=== PATIENT | female | born 1980 | race Caucasian/White ===

== ENCOUNTER → 2017-11-22 | Day surgery (SDC) | payer BC, OTHER ==
--- NOTE | 2017-11-20 15:56 | HISTORY & PHYSICAL EXAMINATION ---
DATE OF ADMISSION: 11/22/2017 She is going for surgery on 11/22/[address] Miranda. REASON FOR ADMISSION: Missed . HISTORY OF PRESENT ILLNESS: The patient is a 37-year-old female, 3, para 2-0-1-2, who presents today after a followup ultrasound revealed early loss. The patient had an early miscarriage in 2011 without a D and E. She is requesting a D and E for this . The heart tones are negative following a repeat ultrasound today. She is AB positive and she is approximately 6 weeks. PAST MEDICAL HISTORY: Noncontributory. PAST SURGICAL HISTORY: x2 and tonsils. ALLERGIES: CODEINE. MEDICATIONS: vitamins. SOCIAL HISTORY: Denies smoking, alcohol, or drug use. FAMILY HISTORY: Noncontributory. REVIEW OF SYSTEMS: Negative. PHYSICAL EXAMINATION: HEENT: Within normal limits. LUNGS: Clear to auscultation. CARDIOVASCULAR: Regular rate and rhythm. ABDOMEN: Soft, nontender. VITAL SIGNS: Blood pressure 100/62, weight is 116 pounds. ASSESSMENT: Early failure, missed . PLAN: D and E in the OR at [facility].
[2017-11-21 11:58] VITALS: BMI 22.0
[~2017-11-22] VITALS: Ht 154.9 cm; Wt 52.7 kg
[~2017-11-22] MED LIST: DEXAMETHASONE SOD INJ 4 MG/ML VIAL ONE; FENTANYL CITRATE INJ 50 MCG/1 ML 2 ML VIAL ONE; IBUP-1427 PO; IBUPROFEN 600 MG TAB PO PRN; KETOROLAC TROMETHAMINE 30 MG/ML VIAL IV. PRN; LACTATED RINGER'S 1000ML 1,000 ML IV SCH; LIDOCAINE HCL 2% 2 ML VIAL (20MG/ML) ONE; MIDAZOLAM HCL 1 MG/ML 2ML VIAL ONE; ONDANSETRON INJ 2 MG/ML 2 ML VIAL IV PRN; ONDANSETRON INJ 2 MG/ML 2 ML VIAL ONE; OXYCODONE/ACETAMINOPHEN 5-325 TAB PO PRN; PRENTAB26 PO; PROPOFOL IV EMULSION 10 MG/ML 20 ML VIAL ONE; SODIUM CHLORIDE 0.9% 1000ML 1,000 ML IV SCH
[2017-11-22 09:47] VITALS: BP 124/85; PULSE 75; TEMP 36.7; O2SAT 100; Ht 154.9 cm; Wt 52.7 kg
--- NOTE | 2017-11-22 09:58 | History & Physical Bridge Note ---
H&P Re-Evaluation Bridge Note: I have examined the patient, reviewed the History & Physical and in the interval since the performance of the History & Physical I have noted the following changes of clinical significance: No changes noted
--- NOTE | 2017-11-22 12:10 | [facility] Post Operative Brief Note ---
Immediate Operative Summary Operative Date November 22, 2017. Pre-Operative Diagnosis First Trimester Missed Post-Operative Diagnosis Same as preop Procedure(s) Performed Dilation and Evacuation Surgeon Dr. Miranda Telephone Service Adviser Surgeon(s) None Estimated Blood Loss 20 ml Findings Consistent with Post-Op Diagnosis Fluids (cc crystalloids) 400 Specimens A. Products of conception Drains None Anesthesia Type General Complication(s) none Disposition Accompanied Pt To Recover: no Disposition: Recovery Room / PACU
--- NOTE | 2017-11-22 12:13 | Discharge Instructions ---
Discharge Instructions Date of Service November 22, 2017. Visit Reason for Visit: Missed Discharge Discharge Diagnosis / Problem: s/p D&E, missed Discharge Goals Goal(s): Decrease discomfort Activity Recommendations Activity Limitations: per Instructions/Follow-up section Anesthesia . Post Anesthesia Instructions: If you have had General Anesthesia or IV Sedation: * Do not drive today. * Resume driving when surgeon permits. * Do not make important decisions or sign legal documents today. * Call surgeon for: 1. Temperature elevations greater than 101 degrees F. 2. Uncontrollable pain. 3. Excessive bleeding. 4. Persistent nausea and vomiting. 5. Medication intolerance (nausea, vomiting or rash). * For nausea and vomiting use only clear liquids such as: tea, soda, bouillon until nausea subsides, then gradually increase diet as tolerated. * If you have any concerns or questions, call your surgeon's office. If physician is unavailable and it is an emergency, call 911 or go to the nearest emergency room. . Instructions / Follow-Up Instructions / Follow-Up ACTIVITY RECOMMENDATIONS: * Avoid tampons, douching, hot tubs, pools, and intercourse until bleeding has stopped. * May shower as usual. * No strenuous activity for 24-48 hours. After 24-48 hours, you may do anything you feel like doing (driving and sports are okay). SPECIAL CARE INSTRUCTIONS: Special Diet: * Mild nausea may occur in the immediate post-operative period. * Take clear liquids such as tea, cola or bouillon until all nausea has subsided; you may then resume your normal diet. Special Care: * Light bleeding and vaginal spotting can last from a few days to 3-4 weeks. Call your doctor if bleeding becomes heavier than the heaviest part of your period. * Check your temperature twice a day for one week. If it goes above 100.4 degrees Fahrenheit (38.0 Celsius), notify your doctor. * Call your doctor's office for an appointment for 6 weeks after your surgery. FOLLOW-UP VISIT: Call your doctor's office for an appointment for 6 weeks after your surgery. Diet Recommendations Recommended Home Diet: no limitations, resume previous diet Procedures Procedures Performed: Dilation and Evacuation Pending Studies Studies pending at discharge: no Medical Emergencies . Who to Call and When: Medical Emergencies: If at any time you feel your situation is an emergency, please call 911 immediately. . Non-Emergent Contact Non-Emergency issues call your: Primary Care Provider, Regional Economist . . "Provider Documentation" section prepared by Brown Miranda. .
[2017-11-22 13:00] VITALS: BP 98/50; PULSE 60; TEMP 36.8; O2SAT 100
--- NOTE | 2017-11-22 13:22 | OPERATIVE REPORT ---
DATE OF OPERATION: 11/22/2017 PREOPERATIVE DIAGNOSIS: First trimester missed . POSTOPERATIVE DIAGNOSIS: First trimester missed . OPERATIVE PROCEDURE: Suction, dilation and evacuation. SURGEON: Dr. Miranda. DONKEY ENGINE FIRER/FIREMAN: None. ANESTHESIA: General. ESTIMATED BLOOD LOSS: 20 mL IV FLUIDS: 400 mL crystalloid. URINE OUTPUT: 10 mL clear yellow urine. SPECIMENS: Products of conception to pathology. DRAINS: None. COMPLICATIONS: None. DISPOSITION: Recovery room. OPERATIVE FINDINGS: Upon bimanual examination, uterus was approximately 8 weeks' gestation. Bilateral adnexa were clear to palpation. Uterus sounded to 10 cm. Using a size 10 suction curette, a thorough evacuation was performed under suction obtaining a moderate amount of products of conception, which was all sent to pathology. Once the entire cavity was evacuated, utilizing a large Tsai curette a thorough sharp curettage of the cavity was performed obtaining minimal amount of tissue. Excellent hemostasis was noted. Patient tolerated the procedure well and was sent to recovery with stable vital signs. OPERATIVE PROCEDURE IN DETAIL: Patient was taken to the operating room where general anesthesia was administered. Once the anesthesia was found to be adequate, the patient was placed in dorsal lithotomy position and was prepped and draped in a manner appropriate for the procedure. A bimanual examination was then performed with the above-noted findings. Bladder was then drained of clear yellow urine. A weighted speculum was then placed into the vagina and the anterior lip of the cervix was grasped with a single tooth tenaculum. Using Little dilators, the cervix was dilated and the uterus sounded to 10 cm. Using a size 10 suction curette, a thorough curettage of the cavity was performed under suction evacuating the entire contents and sent to pathology. Multiple passes were performed. Once all products of conception was found to be evacuated, the suction curette was then removed and utilizing a large sharp curette a thorough curettage of the cavity was performed, obtaining a minimal amount of tissue. Excellent hemostasis was noted. All instruments were then removed from the vagina. All sponge and instruments were found to be correct x2. The patient tolerated the procedure well and was sent to recovery with stable vital signs. I attest to the content of the Intraoperative Record and any orders documented therein. Any exception s are noted below.
[2017-11-22 13:30] VITALS: BP 103/61; PULSE 62; O2SAT 99
--- NOTE | 2017-11-22 13:51 | Anesthesiology Progress Note ---
Anesthesia Post Op Note Date & Time November 22, 2017 at 13:50 Vital Signs Pain Intensity: 0 Vital Signs Past 12 Hours Date Time Temp Pulse Resp B/P (MAP) Pulse Ox O2 Delivery O2 Flow Rate FiO2 11/22/17 13:30 62 16 103/61 99 Room Air 11/22/17 13:00 36.8 60 16 98/50 100 Room Air 11/22/17 12:45 36.8 58 20 100/53 97 Room Air 11/22/17 12:35 62 20 119/58 97 Room Air 11/22/17 12:25 60 20 109/57 97 Room Air 11/22/17 12:18 36.6 80 20 114/69 96 Room Air 11/22/17 09:47 36.7 75 16 124/85 (98) 100 Room Air Notes Mental Status: alert / awake / arousable, participated in evaluation Pt Amnestic to Procedure: Yes Nausea / Vomiting: adequately controlled Pain: adequately controlled Airway Patency, RR, SpO2: stable & adequate BP & HR: stable & adequate Hydration State: stable & adequate Anesthetic Complications: no major complications apparent
== END | disposition home or self-care (01) ==
LOC: C.ACU 09:24
PROVIDERS: ATTEND Obstetrics & Gynecology
DX: O02.1 Missed abortion (principal); Z88.5 Allergy status to narcotic agent

== ENCOUNTER 2022-11-03 13:10 | Inpatient (IN) ==
[~2022-11-03 13:10] MED LIST changes: +CITRIC ACID/SODIUM CITRATE 15 ML UDC PO SCH; -DEXAMETHASONE SOD INJ 4 MG/ML VIAL ONE; -FENTANYL CITRATE INJ 50 MCG/1 ML 2 ML VIAL ONE; -IBUP-1427 PO; -IBUPROFEN 600 MG TAB PO PRN; -KETOROLAC TROMETHAMINE 30 MG/ML VIAL IV. PRN; -LACTATED RINGER'S 1000ML 1,000 ML IV SCH; -LIDOCAINE HCL 2% 2 ML VIAL (20MG/ML) ONE; -MIDAZOLAM HCL 1 MG/ML 2ML VIAL ONE; -ONDANSETRON INJ 2 MG/ML 2 ML VIAL IV PRN; -ONDANSETRON INJ 2 MG/ML 2 ML VIAL ONE; -OXYCODONE/ACETAMINOPHEN 5-325 TAB PO PRN; -PRENTAB26 PO; -PROPOFOL IV EMULSION 10 MG/ML 20 ML VIAL ONE; -SODIUM CHLORIDE 0.9% 1000ML 1,000 ML IV SCH; +ceFAZolin 2000MG 2,000 MG/15 ML SYR IV SCH
[2022-11-03 14:32] LABS: Basophils # (auto) 0.04 K/uL (0-0.2); Basophils % (auto) 0.4 %; Eosinophils % (auto) 0.9 %; Hematocrit (blood only) 39.7 % (37.0-47.0); Hemoglobin 13.7 g/dl (12.0-16.0); Immature Granulocytes # (auto) 0.14 K/uL (0.01-0.20); Immature Granulocytes % (auto) 1.3 %; Lymphocytes # (auto) 1.71 K/uL (1.2-3.4); Lymphocytes % (auto) 15.4 %; Mean Corpuscular Hemoglobin 29.5 pg (25.0-34.0); Mean Corpuscular Hgb Conc 34.5 g/dL (32.0-36.0); Mean Corpuscular Volume 85.6 fL (80.0-100.0); Mean Platelet Volume 10.6 fL (9.4-12.4); Monocytes # (auto) 0.62 K/uL (0.11-0.59); Monocytes % (auto) 5.6 %; Neutrophils % (auto) 76.4 %; Platelet Count 230 K/uL (130-400); RDW Coefficient of Variation 12.5 % (11.5-14.5); RDW Standard Deviation 38.5 fL (36.4-46.3); Red Blood Count 4.64 M/uL (4.20-5.40); White Blood Count 11.11 K/ul (4.8-10.8)
[2022-11-03 14:52] LABS: Albumin Level 3.4 gm/dl (3.4-5.0); Bilirubin,Total 0.2 mg/dl (0.2-1.0); Calcium 8.9 mg/dl (8.6-10.3); Potassium 4.1 mmol/L (3.5-5.1)
[2022-11-03 14:58] LABS: Albumin Globulin Ratio 1.1 (0.9-2); BUN Creatinine Ratio 23.2 (10-20); Creatinine Clr Calc Pharmacy 95.6 ml/min; Est GFR (African American) 125.3 ml/min; Est GFR (Non-African American) 108.1 ml/min; Globulin 3.1 gm/dl (2.5-4.0); Total Protein 6.5 gm/dl (6.0-8.3); Uric Acid 4.9 mg/dl (2.6-7.2)
[2022-11-03 15:09] LABS: INR 0.9 (0.9-1.1); Partial Thromboplastin Time 27.1 Seconds (21.0-31.0); Prothrombin Time 9.4 Seconds (9.0-12.0)
[2022-11-03 15:21] LABS: Total Protein Urine Random 114.2 mg/dl (0-11.9)
[2022-11-03 15:27] LABS: Creatinine Urine Random 50.5 mg/dl; Protein Creatinine Ratio Urine 2.3 (0-0.2)
[2022-11-03] MEDS ORDERED: LACTATED RINGER'S 1,000 ML IV SCH ×2 (15:45→18:30)
[2022-11-03] MEDS ORDERED: MAG SULFATE 4GM BOLUS FROM BAG IV ONE (15:58)
[2022-11-03] MEDS ORDERED: MAG SULFATE 6GM BOLUS FROM BAG IV ONE (15:58)
[2022-11-03] MEDS ORDERED: MAGNESIUM SULFATE 40GM / WTR 1,000 ML BAG IV ONE (16:02)
--- NOTE | 2022-11-03 16:09 | Anesthesiology Consultation ---
Date of Service November 03, 2022 Assessment & Plan Chart Review Chart Review: Acceptable Risk for Surgery Consults Requested none ASA ASA2 Proposed Anesthesia Anesthesia Type: Spinal Risk / Benefits Reviewed With: PT / POA / Parent / Guardian, Accepts Plan and Informed Consent Obtained History Height/Weight Height: 5 ft 1 in Weight: 69.4 kg Allergies Allergy/AdvReac Type Severity Reaction Status Date / Time acetaminophen [From Percocet] AdvReac Unknown Nausea Verified 10/27/22 13:52 codeine AdvReac Unknown NAUSEA Verified 10/27/22 13:52 oxycodone [From Percocet] AdvReac Unknown Nausea Verified 10/27/22 13:52 Medications Home Medications Medication Instructions Recorded Confirmed Last Taken valacyclovir 500 mg tablet 500 mg PO BID 10/27/22 10/27/22 Unknown (Valtrex) NPO Date Last Intake of Fluids: 11/03/22 Time Last Intake of Fluids: 10:45 Date Last Intake of Solids: 11/03/22 Time Last Intake of Solids: 10:45 Past Medical History Medical History Pre-eclampsia Exercise / Class Metabolic Activity II 4-5 Yardwork/Stairs/Walk up hill Past Family History Family History Grandmother (Paternal) Family history of diabetes mellitus Past Surgical History Surgical History History of section x 2 History of dilatation and curettage History of tonsillectomy Hx of breast augmentation Past Anesthesia History No Hx of Anesthesia Complications and No Family Hx of Anesthesia Complications History of PONV No Hx of PONV and No Hx of Motion Sickness Social History Smoking Status: Former smoker tobacco type: cigarettes Smoking cigarettes per day: quit 12 yrs ago Hx Alcohol Use: No Alcohol type: wine alcohol intake frequency: a few times a week Hx Substance Use: No substance use type: does not use Physical Exam Vital Signs Last Vital Signs Temp 36.8 C 11/03/22 13:34 Pulse 70 11/03/22 15:18 Resp 20 11/03/22 13:34 BP 142/90 H 11/03/22 15:18 ENMT Mouth: no TMJ abnormality Thyromental Distance: > or= 3.5 Finger Breadths Mallampati Class: II Neck normal visual inspection and trachea midline; neck extension not limited Respiratory normal respiratory effort Auscultation: lungs clear to auscultation bilaterally Cardiovascular Rate/Rhythm: regular rate and regular rhythm Heart Sounds: no murmur Musculoskeletal Spine: normal cervical ROM Extremities: full ROM of extremities Neurologic moves all extremities Psychiatric Orientation: alert and oriented x 3 Testing Laboratory Results 11/03/22 14:14 11/03/22 14:14 PT 9.4 Seconds (9.0-12.0) 11/03/22 14:14 INR 0.9 (0.9-1.1) 11/03/22 14:14 APTT 27.1 Seconds (21.0-31.0) 11/03/22 14:14
--- NOTE | 2022-11-03 16:11 | History & Physical Report ---
Date of Service November 03, 2022 Assessment & Plan (1) Pre-eclampsia, severe, antepartum: Plan: Start Magnesium repet with bilateral salpingectomy planned Admission and Anticipated Discharge Date Admission Date: November 03, 2022 History of Present Illness Chief Complaint: high blood pressure in 36.2 weeks Primary Care Provider: DIOGENES PCP 42 F P2012 at 36.2 weeks admitted from office with elevated BP of 164/100 and 162/100. She has been treending upward. Her labs were normal in the past and today had urine protein/creatinine ratio elevated at 2.3. She denies headache, visual changes any swelling or any other symptoms of nausea or vomitting. Allergies Allergy/AdvReac Type Severity Reaction Status Date / Time acetaminophen [From Percocet] AdvReac Unknown Nausea Verified 10/27/22 13:52 codeine AdvReac Unknown NAUSEA Verified 10/27/22 13:52 oxycodone [From Percocet] AdvReac Unknown Nausea Verified 10/27/22 13:52 Home Medications Medication Instructions Recorded Confirmed Type valacyclovir 500 mg tablet 500 mg PO BID 10/27/22 10/27/22 History (Valtrex) Patient History Medical History Pre-eclampsia Surgical History History of section x 2 History of dilatation and curettage History of tonsillectomy Hx of breast augmentation Family History Grandmother (Paternal) Family history of diabetes mellitus Social History Smoking Status: Former smoker Cigarettes Per Day: quit 12 yrs ago; Second Hand Exposure: No; Hx Alcohol Use: No Hx Substance Use: No Preferred Language: Cambodian Communication Ability: Effective Compensation Vice President Required: No Beliefs That Will Affect Care: None marital status: Current Living Situation: Family Feels Safe at Home: Yes Sunscreen Use: Yes Assistive Devices: None OB History x2 PRINCIPAL DATABASE DEVELOPER History Herpes Review of Systems All systems reviewed & are unremarkable except as noted in HPI & below Physical Exam Constitutional: WD/WN, vitals as above Eyes: PERRL, conjunctivae normal, anicteric sclerae Respiratory: normal respiratory effort, lungs clear to auscultation Cardiovascular: RRR, no murmur, no edema Gastrointestinal (Abdomen): Inspection/Auscultation: abdomen normal to inspection Musculoskeletal: Extremities: extremities normal to inspection Skin: no rashes, warm and dry Neurologic: patellar DTR's 2+ bilat, sensation intact Psychiatric: A+Ox3, euthymic affect Genitourinary: no vaginal lesions, no adnexal mass OB Exam Monitor Tracing: + external FHT monitor used, + external uterine monitor used, + category I and + normal FHT variability Results & Data Vital Signs (Past 12 Hours) Vital Signs Temp Pulse Resp BP 11/03/22 13:34 36.8 C 20 11/03/22 15:18 70 11/03/22 15:18 142/90 H 11/03/22 14:06 71 11/03/22 14:06 129/87 11/03/22 13:58 77 11/03/22 13:58 132/83 11/03/22 13:47 75 11/03/22 13:47 140/99 11/03/22 13:37 87 11/03/22 13:37 139/92 11/03/22 13:26 78 149/95 H Laboratory Results 11/03/22 11/03/22 11/03/22 14:14 14:14 14:14 WBC 11.11 H RBC 4.64 Hgb 13.7 Hct 39.7 MCV 85.6 MCH 29.5 MCHC 34.5 RDW Std Deviation 38.5 RDW Coeff of Cathy 12.5 Plt Count 230 MPV 10.6 Immature Gran % (Auto) 1.3 Neut % (Auto) 76.4 Lymph % (Auto) 15.4 Vance % (Auto) 5.6 Eos % (Auto) 0.9 Baso % (Auto) 0.4 Neut # (Auto) 8.50 H Lymph # (Auto) 1.71 Vance # (Auto) 0.62 H Eos # (Auto) 0.10 Baso # (Auto) 0.04 Immature Gran # (Auto) 0.14 PT 9.4 INR 0.9 APTT 27.1 PTT Ratio 1.0 Sodium 135 L Potassium 4.1 Chloride 106 Carbon Dioxide 21 Anion Gap 8 BUN 16 Creatinine 0.69 Est Cr Clr Drug Dosing 95.6 Est GFR ( Amer) 125.3 Est GFR (Non-Af Amer) 108.1 BUN/Creatinine Ratio 23.2 H Glucose 74 Uric Acid 4.9 Calcium 8.9 Total Bilirubin 0.2 AST 19 ALT 14 Alkaline Phosphatase 100 Total Protein 6.5 Albumin 3.4 Globulin 3.1 Albumin/Globulin Ratio 1.1 Ur Random Creatinine U Random Total Protein Protein/Creatinin Ratio SARS-CoV-2, RNA, NAAT 11/03/22 11/03/22 Unknown Unknown WBC RBC Hgb Hct MCV MCH MCHC RDW Std Deviation RDW Coeff of Cathy Plt Count MPV Immature Gran % (Auto) Neut % (Auto) Lymph % (Auto) Vance % (Auto) Eos % (Auto) Baso % (Auto) Neut # (Auto) Lymph # (Auto) Vance # (Auto) Eos # (Auto) Baso # (Auto) Immature Gran # (Auto) PT INR APTT PTT Ratio Sodium Potassium Chloride Carbon Dioxide Anion Gap BUN Creatinine Est Cr Clr Drug Dosing Est GFR ( Amer) Est GFR (Non-Af Amer) BUN/Creatinine Ratio Glucose Uric Acid Calcium Total Bilirubin AST ALT Alkaline Phosphatase Total Protein Albumin Globulin Albumin/Globulin Ratio Ur Random Creatinine 50.5 U Random Total Protein 114.2 H Protein/Creatinin Ratio 2.3 H SARS-CoV-2, RNA, NAAT NEGATIVE Code Status & VTE Plan VTE Prophylaxis Plan VTE Prophylaxis will be ordered: No Monitoring External Monitor Cat 1
[2022-11-03] MEDS ORDERED: fentaNYL citrate PF 100 MCG/2 ML VIAL ONE (16:43)
[2022-11-03] MEDS ORDERED: OXYTOCIN 10 UNITS/ML 10ML VIAL ONE ×4 (16:43→16:44)
[2022-11-03] MEDS ORDERED: MoRPHine SULFATE PF 1 MG/ML 10 ML AMP/VIAL ONE (16:43)
[2022-11-03] MEDS ORDERED: ePHEDrine sulfate 50 MG/ML AMP IV PRN (16:52)
[2022-11-03] MEDS ORDERED: ONDANSETRON INJ 2 MG/ML 2 ML VIAL IV PRN ×2 (16:52→18:26)
[2022-11-03] MEDS ORDERED: NALOXONE HCL 0.08 MG in SYRINGE 1.8 ML IV PRN (16:52)
[2022-11-03] MEDS ORDERED: MEPERIDINE HCL 25 MG/ML CARP/VIAL IV PRN (16:52)
[2022-11-03] MEDS ORDERED: MoRPHine SULFATE 2 MG/ML CARP IV PRN (16:52)
[2022-11-03] MEDS ORDERED: NALOXONE HCL 0.4 MG/1 ML VIAL/CARP IV PRN (16:52)
[2022-11-03] MEDS ORDERED: diphenhydrAMINE 50 MG/ML VIAL IV PRN ×2 (16:52→18:26)
[2022-11-03] MEDS ORDERED: NALBUPHINE HCL INJ 10 MG/ML AMP IV PRN (16:52)
[2022-11-03] MEDS ORDERED: METOCLOPRAMIDE HCL 20 MG in SODIUM CHLORIDE 0.9% 50 ML IV PRN (16:52)
[2022-11-03] MEDS ORDERED: NALOXONE HCL 1 MG in SODIUM CHLORIDE 0.9% 1000ML 1,000 ML IV PRN (16:52)
[2022-11-03] MEDS ORDERED: LACTATED RINGER'S 500 ML IV PRN (16:52)
[2022-11-03] MEDS ORDERED: LABETALOL HCL IV 5 MG/ML 20ML IV ONE (16:59)
[2022-11-03] MEDS ORDERED: NO NARCOTICS OR SEDATIVES SCH (17:00)
[2022-11-03] MEDS ORDERED: DC INTRASPINAL MORPHINE SCH (17:00)
[2022-11-03] MEDS ORDERED: SODIUM CHLORIDE 0.9% 1000ML 1,000 ML IV SCH (17:00)
[2022-11-03] MEDS ORDERED: MoRPHine SULFATE PF 1 MG/ML 10 ML AMP/VIAL INT SPINAL ONE (17:10)
[2022-11-03] MEDS ORDERED: PHENYLEPHRINE 100MCG/ML 5ML SYR ONE (17:32)
[2022-11-03] MEDS ORDERED: ONDANSETRON INJ 2 MG/ML 2 ML VIAL ONE (17:32)
[2022-11-03] MEDS ORDERED: METOCLOPRAMIDE HCL INJ 5 MG/ML 2 ML VIAL ONE (17:32)
--- NOTE | 2022-11-03 18:23 | Anesthesiology Progress Note ---
Date of Service November 03, 2022 Anesthesia Post Procedure Vital Signs Vital Signs: Temp Pulse Resp BP 11/03/22 13:34 36.8 C 20 11/03/22 16:54 112 H 11/03/22 16:54 193/101 H 11/03/22 16:23 75 11/03/22 16:23 194/101 H 11/03/22 15:18 70 11/03/22 15:18 142/90 H 11/03/22 14:06 71 11/03/22 14:06 129/87 11/03/22 13:58 77 11/03/22 13:58 132/83 11/03/22 13:47 75 11/03/22 13:47 140/99 11/03/22 13:37 87 11/03/22 13:37 139/92 11/03/22 13:26 78 149/95 H Notes Mental Status: alert / awake / arousable Patient Amnestic to Procedure: Yes Nausea / Vomiting: adequately controlled Pain: adequately controlled Airway Patency, RR, SpO2: stable & adequate BP & HR: stable & adequate Hydration State: stable & adequate Neuraxial Anesthesia: was administered and sensory block is resolving Anesthetic Complications: no major complications apparent
--- NOTE | 2022-11-03 18:23 | Post Operative Brief Note ---
Immediate Post Op Note v1 Date of Surgery November 03, 2022 Pre & Post Diagnosis Operation Date: 11/03/22 16:30 Pre-Op Diagnosis: Repeat section with bilateral tubal ligation Preeclampsia with severe features Post-Op Diagnosis: Same as pre-op I identified the patient and participated in the time-out.: Yes Procedure Operation Date: 11/03/22 16:30 Actual Procedures p Repeat Section in LD; Live male child at 1734(Bilateral) - Jono Lloyd MD Surgeon Jono Lloyd MD Knifer Up Brit MARTINEZ Estimated Blood Loss 450 Findings Consistent with Post-Op Diagnosis Live male Apgars 8/9 weight 5 lbs. 5oz. Fluids LR 1100 ml. Specimens placenta bilateral fallopian tubes Drains Ross Catheter (Inserted after spinal anesthesia; draining clear yellow urine during procedure.) Anesthesia Type Spinal Complications none Disposition Accompanied Patient To Recovery: Yes Overlapping Procedure I was present for: the critical portions of procedure. I was immediately available: during the entire case. Back up surgeon: was not required during procedure.
[2022-11-03] MEDS ORDERED: DIPHTHERIA/TETANUS/PERTUSSIS 0.5mL SYR/VIAL (Age 7+yrs) IM ONE (18:26)
[2022-11-03] MEDS ORDERED: PROMETHAZINE HCL 25 MG in SODIUM CHLORIDE 0.9% 50 ML IV PRN (18:26)
[2022-11-03] MEDS ORDERED: diphenhydrAMINE Capsule 25 MG CAP PO PRN (18:26)
[2022-11-03] MEDS ORDERED: MEPERIDINE HCL 50 MG/ML CARP IV PRN (18:26)
[2022-11-03] MEDS ORDERED: SENNA 8.6 MG TAB PO PRN (18:26)
[2022-11-03] MEDS ORDERED: BENZOCAINE 20% AER SPR 82.5 GM CAN EXT PRN (18:26)
[2022-11-03] MEDS ORDERED: MAGNESIUM HYDROXIDE SUSP 30 ML UDC PO PRN (18:26)
[2022-11-03] MEDS ORDERED: oxyCODONE/ACETAMINOPHEN 5mg/325mg TAB PO PRN (18:26)
[2022-11-03] MEDS ORDERED: HYDROCORTISONE ACETATE 25 MG SUPP PR PRN (18:26)
[2022-11-03] MEDS: MAGNESIUM SULFATE / WTR 40 GM/1,000 ML BAG IV SCH (19:30)
[2022-11-03] MEDS: KETOROLAC 30 MG/ML VIAL IV PRN (21:06)
[2022-11-03] MEDS: SIMETHICONE 80 MG CHEW PO SCH (21:06)
[2022-11-03] MEDS: DOCUSATE SODIUM 100 MG CAP PO SCH (21:06)
[2022-11-03] MEDS: OXYTOCIN 20 UNITS in LACTATED RINGER'S 1,000 ML IV SCH (21:12)
--- NOTE | 2022-11-03 22:09 | Operative Report (OR) ---
DATE OF SURGERY: 11/03/2022 PREOPERATIVE DIAGNOSES: Preeclampsia with severe features, voluntary sterilization procedure. POSTOPERATIVE DIAGNOSES: Preeclampsia with severe features, voluntary sterilization procedure. PROCEDURE: Repeat section, low segment transverse and bilateral salpingectomy. SURGEON: Jono Lloyd MD DRIER BELT CONVEYOR: MICHELLE Perea ANESTHESIA: Spinal. CLINICAL HISTORY: The patient is a 42-year-old female, para 2-0-1-2, at 36 weeks and 2 days, admitte d from the office with elevated blood pressures consistent with preeclampsia with severe features. S he also had elevated urine protein creatinine ratio. The patient desired elective sterilization, and she was consented for bilateral salpingectomy and given informed consent. The patient was identified prior to the start of the procedure and Ancef 2 g were given preop. DESCRIPTION OF PROCEDURE: Under satisfactory spinal anesthesia, the patient was prepped and draped i n the usual sterile fashion. She was tested for adequate anesthesia. A low Pfannenstiel incision th rough a prior scar, entering into the abdominal cavity in successive layers. Upon entering into the peritoneal cavity, a bladder flap was made. A low segment transverse incision over the lower uterine segment was made. The incision was widened in the AP diameter. The amniotic sac was nicked, found to be clear. The infant was then delivered from the vertex presentation with the aid of fundal press ure, delivering a live male. Cord was doubly clamped and cut after a 1-minute cord delay. Apgars we re 8 and 9, weight 5 pounds 5 ounces. Cord blood was obtained. Placenta delivered spontaneous ly and intact and submitted to pathology as a separate specimen. The uterus was then exteriorized. Ring forceps were then used to grab both angles in the inferior margin. Another ring used to dilate the cervix. Uterus was closed in a single layer closure using 3-0 Vicryl suture in continuous interl ocking fashion. Both tubes and ovaries were inspected and were found to be within normal limits. Portillo th tubes were grabbed posteriorly with Oneyda clamps, and using the handheld LigaSure device, the tu bes were removed in normal fashion using surgical energy. No active bleeding was noted. The content s of the pelvic cavity were dry and irrigated. The initial sponge, needle, and instrument counts wer e found to be correct. The tubes were once more inspected, no active bleeding was noted. The fascia was then reapproximated from both ends using 0 Vicryl suture in continuous fashion. Subcuticular sp montserrat was then irrigated and closed with 3-0 plain suture. Skin was reapproximated with 4-0 Monocryl s uture. Steri-Strips were then applied. Clear urine was noted from the Ross. The estimated blood l oss was approximately 450 mL. The total urine output was 300 mL and the total fluids were 1100 mL. Th e patient was then placed supine on a stretcher. She was taken to recovery room in stable condition. Job ID: [id number]
[2022-11-04 06:00] LABS: Basophils # (auto) 0.06 K/uL (0-0.2); Basophils % (auto) 0.5 %; Eosinophils # (auto) 0.05 K/uL (0-0.50); Eosinophils % (auto) 0.4 %; Hematocrit (blood only) 36.4 % (37.0-47.0); Hemoglobin 12.5 g/dl (12.0-16.0); Immature Granulocytes % (auto) 1.6 %; Lymphocytes # (auto) 1.27 K/uL (1.2-3.4); Lymphocytes % (auto) 9.9 %; Mean Corpuscular Hemoglobin 29.2 pg (25.0-34.0); Mean Corpuscular Hgb Conc 34.3 g/dL (32.0-36.0); Mean Platelet Volume 10.1 fL (9.4-12.4); Monocytes # (auto) 0.78 K/uL (0.11-0.59); Monocytes % (auto) 6.1 %; Neutrophils # (auto) 10.46 K/uL (1.40-6.50); Neutrophils % (auto) 81.5 %; Platelet Count 185 K/uL (130-400); RDW Coefficient of Variation 12.4 % (11.5-14.5); RDW Standard Deviation 37.8 fL (36.4-46.3); Red Blood Count 4.28 M/uL (4.20-5.40); White Blood Count 12.82 K/ul (4.8-10.8)
[2022-11-04] MEDS: KETOROLAC 30 MG/ML VIAL IV PRN (06:27)
[2022-11-04] MEDS ORDERED: Nursing to Pharmacy Communication PRN (08:37)
[2022-11-04] MEDS ORDERED: SODIUM CHLORIDE 0.65% NA SOLN 45 ML (OCEAN) NAE PRN (08:44)
[2022-11-04] MEDS: OXYTOCIN 20 UNITS in LACTATED RINGER'S 1,000 ML IV SCH (10:30)
[2022-11-04] MEDS ORDERED: KETOROLAC 30 MG/ML VIAL IV PRN (10:52)
[2022-11-04] MEDS: MAGNESIUM SULFATE / WTR 40 GM/1,000 ML BAG IV SCH (11:03)
[2022-11-04 11:11] LABS: Calcium 6.5 mg/dl (8.6-10.3)
[2022-11-04 11:12] LABS: Albumin Globulin Ratio 1.1 (0.9-2); Albumin Level 2.9 gm/dl (3.4-5.0); BUN Creatinine Ratio 15.8 (10-20); Bilirubin,Total 0.2 mg/dl (0.2-1.0); Creatinine Clr Calc Pharmacy 86.8 ml/min; Est GFR (African American) 112.9 ml/min; Est GFR (Non-African American) 97.4 ml/min; Globulin 2.7 gm/dl (2.5-4.0); Potassium 3.8 mmol/L (3.5-5.1); Total Protein 5.6 gm/dl (6.0-8.3)
--- NOTE | 2022-11-04 11:40 | Obstetrical Progress Note ---
Date of Service November 04, 2022 Assessment & Plan (1) Pre-eclampsia, severe, antepartum: POD #1 for Preeclampsia pt doing well On Magnesium sulphate Stable vital and labs Plan D/C Mg after 24 hrs continue to monitor Vitals and labs (2) delivery delivered: Subjective Ambulation: ambulating normally Voiding: no voiding problems Passing Gas:: Yes Diet Tolerance:: clear liquids Lochia:: Small Feeding Type:: breast feeding Review of Systems All systems reviewed & are unremarkable except as noted in HPI & below Physical Exam Constitutional WD/WN, vitals as above well developed and well nourished Eyes PERRL, conjunctivae normal, anicteric sclerae ENMT external ear and nose normal, oropharynx normal Neck trachea midline, no thyromegaly Respiratory normal respiratory effort, lungs clear to auscultation Cardiovascular RRR, no murmur, no edema Chest (Breasts) normal inspection/palpation of breasts Gastrointestinal (Abdomen) normal bowel sounds, soft, nontender, no hepatosplenomegaly Musculoskeletal no cyanosis or clubbing, extremities motor strength 5/5 Skin no rashes, warm and dry + incision (Clean,dry and intact) Neurologic patellar DTR's 2+ bilat, sensation intact Psychiatric A+Ox3, euthymic affect Genitourinary normal external appearance Lymphatic no cervical or axillary lymphadenopathy Results & Data Vital Signs (Past 12 Hours) Vital Signs Temp Pulse Resp BP Pulse Ox O2 Del Method 11/04/22 11:00 20 11/04/22 11:00 36.5 C 20 11/04/22 09:55 16 11/04/22 09:03 20 11/04/22 08:09 20 11/04/22 07:00 18 11/04/22 07:00 Room Air 11/04/22 06:05 14 11/04/22 06:05 14 98 11/04/22 05:05 16 98 11/04/22 05:05 16 11/04/22 04:05 18 100 11/04/22 03:05 Room Air 11/04/22 03:05 36.8 C 16 11/04/22 03:05 16 98 11/04/22 03:05 16 11/04/22 02:05 16 97 11/04/22 02:05 16 11/04/22 01:10 14 11/04/22 01:10 14 95 11/04/22 00:05 18 95 11/04/22 00:05 18 11/04/22 11:32 77 94 11/04/22 11:27 77 95 11/04/22 11:22 74 95 11/04/22 11:17 74 97 11/04/22 11:12 71 97 11/04/22 11:07 71 97 11/04/22 11:02 73 98 11/04/22 10:57 77 99 11/04/22 10:52 71 98 11/04/22 10:47 67 99 11/04/22 10:42 65 98 11/04/22 10:37 80 96 11/04/22 10:32 64 99 11/04/22 10:30 63 133/83 11/04/22 10:27 63 99 11/04/22 10:22 63 98 11/04/22 10:17 66 99 11/04/22 10:12 63 99 11/04/22 10:07 63 100 11/04/22 10:02 66 99 11/04/22 09:57 62 99 11/04/22 09:52 73 97 11/04/22 09:47 60 97 11/04/22 09:42 60 98 11/04/22 09:37 62 99 11/04/22 09:32 59 L 97 11/04/22 09:27 58 L 97 11/04/22 09:22 61 97 11/04/22 09:17 60 98 11/04/22 09:12 61 98 11/04/22 09:07 62 96 11/04/22 09:02 63 98 11/04/22 08:57 62 99 11/04/22 08:52 68 98 11/04/22 08:47 73 98 11/04/22 08:42 65 98 11/04/22 08:37 72 98 11/04/22 08:32 78 98 11/04/22 08:27 74 99 11/04/22 08:22 66 97 11/04/22 08:17 68 96 11/04/22 08:12 83 98 11/04/22 08:07 80 98 11/04/22 08:06 77 143/90 H 11/04/22 08:02 77 99 11/04/22 07:57 72 99 11/04/22 07:52 68 99 11/04/22 07:47 65 99 11/04/22 07:42 69 98 11/04/22 07:37 64 100 11/04/22 07:32 68 99 11/04/22 07:27 67 97 11/04/22 07:22 66 97 11/04/22 07:17 65 98 11/04/22 07:12 65 97 11/04/22 07:07 69 98 11/04/22 07:02 66 98 11/04/22 06:57 69 96 11/04/22 06:52 67 97 11/04/22 06:47 69 98 11/04/22 06:42 65 98 11/04/22 06:37 67 96 11/04/22 06:32 68 98 11/04/22 06:27 66 98 11/04/22 06:22 80 99 11/04/22 06:17 75 98 11/04/22 06:12 75 100 11/04/22 06:07 99 11/04/22 06:07 71 11/04/22 06:07 69 114/77 11/04/22 06:02 66 98 11/04/22 05:57 65 99 11/04/22 05:52 66 99 11/04/22 05:47 66 98 11/04/22 05:42 62 99 11/04/22 05:37 67 99 11/04/22 05:32 62 98 11/04/22 05:27 65 98 11/04/22 05:22 62 99 11/04/22 05:17 63 96 11/04/22 05:15 61 121/68 11/04/22 05:12 61 97 11/04/22 05:07 63 98 11/04/22 05:02 61 97 11/04/22 04:57 61 99 11/04/22 04:52 62 98 11/04/22 04:47 62 97 11/04/22 04:42 64 98 11/04/22 04:41 75 88 L 11/04/22 04:37 67 97 11/04/22 04:32 68 97 11/04/22 04:27 65 98 11/04/22 04:22 67 99 11/04/22 04:17 75 99 11/04/22 04:12 66 100 11/04/22 04:07 74 149/83 H 99 11/04/22 04:02 76 99 11/04/22 03:57 71 98 11/04/22 03:52 67 98 11/04/22 03:47 63 100 11/04/22 03:42 69 100 11/04/22 03:37 78 100 11/04/22 03:32 61 99 11/04/22 03:27 61 99 11/04/22 03:22 60 100 11/04/22 03:17 58 L 98 11/04/22 03:12 58 L 99 11/04/22 03:07 60 98 11/04/22 03:02 58 L 98 11/04/22 02:57 59 L 97 11/04/22 02:52 57 L 97 11/04/22 02:47 60 96 11/04/22 02:42 56 L 95 11/04/22 02:37 60 97 11/04/22 02:32 58 L 96 11/04/22 02:27 66 97 11/04/22 02:22 59 L 97 11/04/22 02:17 57 L 96 11/04/22 02:12 63 97 11/04/22 02:07 58 L 96 11/04/22 02:06 59 L 124/75 11/04/22 02:02 65 96 11/04/22 01:57 58 L 97 11/04/22 01:52 60 96 11/04/22 01:47 60 96 11/04/22 01:42 63 95 11/04/22 01:37 59 L 96 11/04/22 01:32 58 L 97 11/04/22 01:27 61 96 11/04/22 01:22 68 95 11/04/22 01:17 76 100 11/04/22 01:12 57 L 95 11/04/22 01:07 58 L 95 11/04/22 01:02 57 L 95 11/04/22 00:57 57 L 95 11/04/22 00:52 58 L 95 11/04/22 00:47 61 95 11/04/22 00:42 61 94 11/04/22 00:37 60 95 11/04/22 00:32 57 L 94 11/04/22 00:27 71 97 11/04/22 00:22 60 95 11/04/22 00:17 62 96 11/04/22 00:12 60 96 11/04/22 00:07 95 11/04/22 00:07 61 11/04/22 00:07 64 146/63 H 11/04/22 00:02 59 L 95 11/03/22 23:57 95 11/03/22 23:57 60 11/03/22 23:52 95 11/03/22 23:52 60 11/03/22 23:47 95 11/03/22 23:47 64 11/03/22 23:42 97 11/03/22 23:42 61
[2022-11-04] MEDS: IBUPROFEN 600 MG TAB PO PRN (13:32)
[2022-11-04] MEDS: SIMETHICONE 80 MG CHEW PO SCH ×4 (13:33→19:46)
[2022-11-04] MEDS: ACETAMINOPHEN 500 MG TAB PO PRN ×2 (14:49→22:26)
[2022-11-04] MEDS: DOCUSATE SODIUM 100 MG CAP PO SCH (19:46)
[2022-11-04] MEDS ORDERED: bisacodyL 5 MG TABEC PO SCH (20:00)
--- NOTE | 2022-11-04 20:34 | Progress Note ---
Date of Service November 04, 2022 Assessment & Plan (1) Pre-eclampsia, severe, antepartum: Plan: Pt feeling much better Able to void and ambulate BP: 140/89 Will continue to monitor Admission and Anticipated Discharge Date Admission Date: November 03, 2022 Results & Data Vital Signs (Past 12 Hours) Vital Signs Temp Pulse Pulse Resp BP BP Pulse Ox 11/04/22 18:05 11/04/22 18:05 36.9 C 65 17 147/89 H 11/04/22 15:30 36.7 C 20 11/04/22 13:20 18 11/04/22 12:10 20 11/04/22 11:00 20 11/04/22 11:00 36.5 C 20 11/04/22 09:55 16 11/04/22 09:03 20 11/04/22 17:12 72 98 11/04/22 17:07 71 99 11/04/22 17:02 70 98 11/04/22 17:00 70 144/94 H 11/04/22 16:57 67 98 11/04/22 16:52 67 97 11/04/22 16:47 67 97 11/04/22 16:42 69 98 11/04/22 16:37 65 98 11/04/22 16:36 66 158/76 H 11/04/22 16:34 63 181/85 H 11/04/22 16:32 70 98 11/04/22 16:27 66 100 11/04/22 16:22 67 100 11/04/22 16:19 62 155/71 H 11/04/22 16:17 64 99 11/04/22 16:12 63 100 11/04/22 16:07 70 100 11/04/22 16:04 62 175/95 H 11/04/22 16:02 69 100 11/04/22 15:57 74 100 11/04/22 15:52 58 L 99 11/04/22 15:48 59 L 143/86 H 11/04/22 15:47 58 L 100 11/04/22 15:42 61 99 11/04/22 15:37 64 99 11/04/22 15:34 59 L 151/86 H 11/04/22 15:32 62 99 11/04/22 15:27 71 99 11/04/22 15:22 69 99 11/04/22 15:18 65 156/92 H 11/04/22 15:17 61 97 11/04/22 15:12 61 99 11/04/22 15:07 61 99 11/04/22 15:02 62 97 11/04/22 15:03 63 154/88 H 11/04/22 14:57 62 97 11/04/22 14:52 64 96 11/04/22 14:49 63 159/87 H 11/04/22 14:47 68 95 11/04/22 14:42 68 96 11/04/22 14:37 69 96 11/04/22 14:32 70 166/93 H 95 11/04/22 14:27 74 95 11/04/22 14:22 68 95 11/04/22 14:17 71 95 11/04/22 14:12 68 95 11/04/22 14:07 96 11/04/22 14:07 67 11/04/22 14:07 71 151/86 H 11/04/22 14:02 66 95 11/04/22 13:57 66 95 11/04/22 13:52 69 95 11/04/22 13:47 64 95 11/04/22 13:42 64 95 11/04/22 13:37 69 95 11/04/22 13:32 66 96 11/04/22 13:28 64 147/85 H 11/04/22 13:27 68 96 11/04/22 13:22 70 96 11/04/22 13:17 65 95 11/04/22 13:12 65 96 11/04/22 13:07 64 96 11/04/22 13:02 64 96 11/04/22 12:57 65 96 11/04/22 12:52 64 95 11/04/22 12:47 64 96 11/04/22 12:42 66 95 11/04/22 12:37 72 96 11/04/22 12:32 78 97 11/04/22 12:27 77 95 11/04/22 12:22 75 96 11/04/22 12:17 75 95 11/04/22 12:12 63 95 11/04/22 12:07 95 11/04/22 12:07 64 11/04/22 12:07 65 147/81 H 11/04/22 12:02 66 95 11/04/22 11:57 70 96 0421/23 11:52 69 95 11/04/22 11:47 74 95 11/04/22 11:42 76 96 11/04/22 11:37 68 95 11/04/22 11:32 77 94 11/04/22 11:27 77 95 11/04/22 11:22 74 95 11/04/22 11:17 74 97 11/04/22 11:12 71 97 11/04/22 11:07 71 97 11/04/22 11:02 73 98 11/04/22 10:57 77 99 11/04/22 10:52 71 98 11/04/22 10:47 67 99 11/04/22 10:42 65 98 11/04/22 10:37 80 96 11/04/22 10:32 64 99 11/04/22 10:30 63 133/83 11/04/22 10:27 63 99 11/04/22 10:22 63 98 11/04/22 10:17 66 99 11/04/22 10:12 63 99 11/04/22 10:07 63 100 11/04/22 10:02 66 99 11/04/22 09:57 62 99 11/04/22 09:52 73 97 11/04/22 09:47 60 97 11/04/22 09:42 60 98 11/04/22 09:37 62 99 11/04/22 09:32 59 L 97 11/04/22 09:27 58 L 97 11/04/22 09:22 61 97 11/04/22 09:17 60 98 11/04/22 09:12 61 98 11/04/22 09:07 62 96 11/04/22 09:02 63 98 11/04/22 08:57 62 99 11/04/22 08:52 68 98 11/04/22 08:47 73 98 11/04/22 08:42 65 98 11/04/22 08:37 72 98 11/04/22 08:32 78 98 O2 Del Method 11/04/22 18:05 Room Air 11/04/22 18:05 Room Air 11/04/22 15:30 11/04/22 13:20 11/04/22 12:10 11/04/22 11:00 11/04/22 11:00 11/04/22 09:55 11/04/22 09:03 11/04/22 17:12 11/04/22 17:07 11/04/22 17:02 11/04/22 17:00 11/04/22 16:57 11/04/22 16:52 11/04/22 16:47 11/04/22 16:42 11/04/22 16:37 11/04/22 16:36 11/04/22 16:34 11/04/22 16:32 11/04/22 16:27 11/04/22 16:22 11/04/22 16:19 11/04/22 16:17 11/04/22 16:12 11/04/22 16:07 11/04/22 16:04 11/04/22 16:02 11/04/22 15:57 11/04/22 15:52 11/04/22 15:48 11/04/22 15:47 11/04/22 15:42 11/04/22 15:37 11/04/22 15:34 11/04/22 15:32 11/04/22 15:27 11/04/22 15:22 11/04/22 15:18 11/04/22 15:17 11/04/22 15:12 11/04/22 15:07 11/04/22 15:02 11/04/22 15:03 11/04/22 14:57 11/04/22 14:52 11/04/22 14:49 11/04/22 14:47 11/04/22 14:42 11/04/22 14:37 11/04/22 14:32 11/04/22 14:27 11/04/22 14:22 11/04/22 14:17 11/04/22 14:12 11/04/22 14:07 11/04/22 14:07 11/04/22 14:07 11/04/22 14:02 11/04/22 13:57 11/04/22 13:52 11/04/22 13:47 11/04/22 13:42 11/04/22 13:37 11/04/22 13:32 11/04/22 13:28 11/04/22 13:27 11/04/22 13:22 11/04/22 13:17 11/04/22 13:12 11/04/22 13:07 11/04/22 13:02 11/04/22 12:57 11/04/22 12:52 11/04/22 12:47 11/04/22 12:42 11/04/22 12:37 11/04/22 12:32 11/04/22 12:27 11/04/22 12:22 11/04/22 12:17 11/04/22 12:12 11/04/22 12:07 11/04/22 12:07 11/04/22 12:07 11/04/22 12:02 11/04/22 11:57 11/04/22 11:52 11/04/22 11:47 11/04/22 11:42 11/04/22 11:37 11/04/22 11:32 11/04/22 11:27 11/04/22 11:22 11/04/22 11:17 11/04/22 11:12 11/04/22 11:07 11/04/22 11:02 11/04/22 10:57 11/04/22 10:52 11/04/22 10:47 11/04/22 10:42 11/04/22 10:37 11/04/22 10:32 11/04/22 10:30 11/04/22 10:27 11/04/22 10:22 11/04/22 10:17 11/04/22 10:12 11/04/22 10:07 11/04/22 10:02 11/04/22 09:57 11/04/22 09:52 11/04/22 09:47 11/04/22 09:42 11/04/22 09:37 11/04/22 09:32 11/04/22 09:27 11/04/22 09:22 11/04/22 09:17 11/04/22 09:12 11/04/22 09:07 11/04/22 09:02 11/04/22 08:57 11/04/22 08:52 11/04/22 08:47 11/04/22 08:42 11/04/22 08:37 11/04/22 08:32
[2022-11-04 20:51] LABS: Basophils # (auto) 0.04 K/uL (0-0.2); Basophils % (auto) 0.3 %; Eosinophils # (auto) 0.07 K/uL (0-0.50); Eosinophils % (auto) 0.6 %; Hematocrit (blood only) 34.1 % (37.0-47.0); Hemoglobin 11.9 g/dl (12.0-16.0); Immature Granulocytes # (auto) 0.13 K/uL (0.01-0.20); Lymphocytes # (auto) 1.36 K/uL (1.2-3.4); Lymphocytes % (auto) 10.8 %; Mean Corpuscular Hemoglobin 29.4 pg (25.0-34.0); Mean Corpuscular Hgb Conc 34.9 g/dL (32.0-36.0); Mean Corpuscular Volume 84.2 fL (80.0-100.0); Mean Platelet Volume 9.9 fL (9.4-12.4); Monocytes # (auto) 0.85 K/uL (0.11-0.59); Monocytes % (auto) 6.7 %; Neutrophils # (auto) 10.15 K/uL (1.40-6.50); Neutrophils % (auto) 80.6 %; Platelet Count 188 K/uL (130-400); RDW Coefficient of Variation 12.6 % (11.5-14.5); Red Blood Count 4.05 M/uL (4.20-5.40)
[2022-11-04 21:07] LABS: Albumin Globulin Ratio 1.1 (0.9-2); BUN Creatinine Ratio 15.7 (10-20); Bilirubin,Total 0.2 mg/dl (0.2-1.0); Calcium 6.8 mg/dl (8.6-10.3); Creatinine Clr Calc Pharmacy 79.5 ml/min; Est GFR (African American) 101.5 ml/min; Est GFR (Non-African American) 87.6 ml/min; Globulin 2.7 gm/dl (2.5-4.0); Total Protein 5.7 gm/dl (6.0-8.3)
[2022-11-05] MEDS: IBUPROFEN 600 MG TAB PO PRN ×4 (03:10→22:39)
[2022-11-05 07:12] LABS: Hematocrit (blood only) 35.9 % (37.0-47.0); Hemoglobin 12.1 g/dl (12.0-16.0)
[2022-11-05] MEDS: DOCUSATE SODIUM 100 MG CAP PO SCH ×2 (08:20→19:56)
[2022-11-05] MEDS: ACETAMINOPHEN 500 MG TAB PO PRN ×2 (08:21→17:04)
[2022-11-05] MEDS: FERROUS SULFATE 325 MG TAB PO SCH (08:21)
[2022-11-05] MEDS: PRENATAL VITAMIN 1 TAB PO SCH (08:21)
[2022-11-05] MEDS: SIMETHICONE 80 MG CHEW PO SCH ×4 (08:21→19:56)
--- NOTE | 2022-11-05 08:21 | Obstetrical Progress Note ---
Date of Service November 05, 2022 Assessment & Plan (1) delivery delivered: Doing well at this time (2) Pre-eclampsia, severe, antepartum: We will start patient on nifedipine 30 mg extended release, will plan to have a blood pressure check in clinic in 3 to 4 days Plan to discharge home tomorrow if doing well Subjective Ambulation: ambulating normally Voiding: no voiding problems Passing Gas:: Yes Diet Tolerance:: regular diet Lochia:: Small Feeding Type:: breast feeding Current Pain Level(1-10): 0 Doing well, bonding with baby in the room. Has been able to breast and pump feed. Also supplementing with formula. No complaints at this time. Physical Exam Constitutional WD/WN, vitals as above Neck trachea midline, no thyromegaly Respiratory normal respiratory effort, lungs clear to auscultation Cardiovascular RRR, no murmur, no edema Gastrointestinal (Abdomen) normal bowel sounds, soft, nontender, no hepatosplenomegaly Incision clean dry intact and well-healing, Steri-Strips in place Uterus below umbilicus Musculoskeletal no cyanosis or clubbing, extremities motor strength 5/5 Skin no rashes, warm and dry Neurologic patellar DTR's 2+ bilat, sensation intact Results & Data Vital Signs (Past 12 Hours) Vital Signs Temp Pulse Resp BP O2 Del Method 11/05/22 00:20 36.8 C 64 18 144/88 H Room Air Laboratory Results Laboratory Results WBC 12.60 K/ul (4.8-10.8) H 11/04/22 20:32 RBC 4.05 M/uL (4.20-5.40) L 11/04/22 20:32 Hgb 12.1 g/dl (12.0-16.0) 11/05/22 06:24 Hct 35.9 % (37.0-47.0) L 11/05/22 06:24 MCV 84.2 fL (80.0-100.0) 11/04/22 20:32 MCH 29.4 pg (25.0-34.0) 11/04/22 20:32 MCHC 34.9 g/dL (32.0-36.0) 11/04/22 20:32 RDW Std Deviation 38.0 fL (36.4-46.3) 11/04/22 20:32 RDW Coeff of Cathy 12.6 % (11.5-14.5) 11/04/22 20:32 Plt Count 188 K/uL (130-400) 11/04/22 20: MPV 9.9 fL (9.4-12.4) 11/04/22 20:32 Immature Gran % (Auto) 1.0 % 11/04/22 20:32 Neut % (Auto) 80.6 % 11/04/22 20:32 Lymph % (Auto) 10.8 % 11/04/22 20:32 [place] % (Auto) 6.7 % 11/04/22 20:32 Eos % (Auto) 0.6 % 11/04/22 20:32 Baso % (Auto) 0.3 % 11/04/22: Neut # (Auto) 10.15 K/uL (1.40-6.50) H 11/04/22 20:32 Lymph # (Auto) 1.36 K/uL (1.2-3.4) 11/04/22 20:32 [place] # (Auto) 0.85 K/uL (0.11-0.59) H 11/04/22 20:32 Eos # (Auto) 0.07 K/uL (0-0.50) 11/04/22 20:32 Baso # (Auto) 0.04 K/uL (0-0.2) 11/04/22 20:32 Immature Gran # (Auto) 0.13 K/uL (0.01-0.20) 11/04/22 20:32 PT 9.4 Seconds (9.0-12.0) 11/03/22 14:14 INR 0.9 (0.9-1.1) 11/03/22 14:14 APTT 27.1 Seconds (21.0-31.0) 11/03/22 14:14 PTT Ratio 1.0 11/03/22 14:14 Sodium 137 mmol/L (136-145) 11/04/22 20:32 Potassium 4.0 mmol/L (3.5-5.1) 11/04/22 20:32 Chloride 108 mmol/L (98-107) H 11/04/22 20:32 Carbon Dioxide 23 mmol/L (21-32) 11/04/22 20:32 Anion Gap 6 (3-11) 11/04/22 20:32 BUN 13 mg/dl (6-23) 11/04/22 20:32 Creatinine 0.83 mg/dl (0.6-1.2) 11/04/22 20:32 Est Cr Clr Drug Dosing 79.5 ml/min 11/04/22 20:32 Est GFR ( Amer) 101.5 ml/min 11/04/22 20:32 Est GFR (Non-Af Amer) 87.6 ml/min 11/04/22 20:32 BUN/Creatinine Ratio 15.7 (10-20) 11/04/22 20:32 Glucose 88 mg/dl (70-99(Fasting)) 11/04/22 20:32 Uric Acid 4.9 mg/dl (2.6-7.2) 11/03/22 14:14 Calcium 6.8 mg/dl (8.6-10.3) L 11/04/22 20:32 Magnesium 6.3 mg/dl (1.7-2.4) H* 11/04/22 10:04 Magnesium (Sulf Ther) 4.7 mg/dL (4.0-8.0) 11/04/22 16:39 Total Bilirubin 0.2 mg/dl (0.2-1.0) 11/04/22 20:32 AST 31 U/L (13-39) 11/04/22 20:32 ALT 13 U/L (7-52) 11/04/22 20:32 Alkaline Phosphatase 91 U/L (34-104) 11/04/22 20:32 Total Protein 5.7 gm/dl (6.0-8.3) L 11/04/22 20:32 Albumin 3.0 gm/dl (3.4-5.0) L 11/04/22 20:32 Globulin 2.7 gm/dl (2.5-4.0) 11/04/22 20:32 Albumin/Globulin Ratio 1.1 (0.9-2) 11/04/22 20:32 Ur Random Creatinine 50.5 mg/dl 11/03/22 Unknown U Random Total Protein 114.2 mg/dl (0-11.9) H 11/03/22 Unknown Protein/Creatinin Ratio 2.3 (0-0.2) H 11/03/22 Unknown SARS-CoV-2, RNA, NAAT NEGATIVE (NEGATIVE) 11/03/22 Unknown Blood Type AB Positive 11/03/22 14:20 Antibody Screen NEGATIVE 11/03/22 14:20
[2022-11-05] MEDS: NIFEdipine EXTENDED REL 30 MG TABCR PO SCH (09:24)
[2022-11-05] MEDS ORDERED: bisacodyL 10 MG SUPP PR PRN (18:18)
[2022-11-05] MEDS ORDERED: LABETALOL HCL IV 5 MG/ML 20ML IV STA (21:51)
[2022-11-06] MEDS: ACETAMINOPHEN 500 MG TAB PO PRN ×3 (02:06→22:37)
[2022-11-06 07:16] LABS: Hematocrit (blood only) 40.7 % (37.0-47.0); Hemoglobin 13.5 g/dl (12.0-16.0); Mean Corpuscular Hemoglobin 29.3 pg (25.0-34.0); Mean Corpuscular Hgb Conc 33.2 g/dL (32.0-36.0); Mean Corpuscular Volume 88.3 fL (80.0-100.0); Mean Platelet Volume 9.3 fL (9.4-12.4); Platelet Count 263 K/uL (130-400); RDW Coefficient of Variation 12.9 % (11.5-14.5); RDW Standard Deviation 41.8 fL (36.4-46.3); Red Blood Count 4.61 M/uL (4.20-5.40); White Blood Count 16.11 K/ul (4.8-10.8)
[2022-11-06] MEDS ORDERED: MAG SULFATE 4GM BOLUS FROM BAG IV ONE (07:28)
[2022-11-06] MEDS ORDERED: MAGNESIUM SULFATE / WTR 40 GM/1,000 ML BAG IV SCH (07:30)
--- NOTE | 2022-11-06 07:32 | Obstetrical Progress Note ---
Date of Service November 06, 2022 Assessment & Plan (1) Pre-eclampsia, severe, antepartum: Continue nifedipine 30 mg extended release Restart mag sulfate and rescue dose of labetalol 20 mg IV push Labs pending Plan for SCDs and Ross while in bed Patient updated at bedside about plan of care, she is agreeable at this time. All questions answered in the room (2) delivery delivered: Subjective Ambulation: ambulating normally Voiding: no voiding problems Passing Gas:: Yes Diet Tolerance:: regular diet Lochia:: Small Feeding Type:: breast feeding Patient was noted to have a severe range blood pressure yesterday evening, brought over to labor and delivery which she received 1 dose of labetalol 20 mg IV. She then had blood pressures in the 140s, and then at 4 AM started to again have severe range blood pressures which on repeat were nonsevere. She was brought over to , had a 174/1 8 8, repeat 174/110. Decision was made to bring back to labor and delivery for rescue meds and 24 hours of mag sulfate. Patient was complaining of a headache earlier that is since resolved. No other complications or concerns at this time Physical Exam Constitutional WD/WN, vitals as above Neck trachea midline, no thyromegaly Respiratory normal respiratory effort, lungs clear to auscultation Cardiovascular RRR, no murmur, no edema Gastrointestinal (Abdomen) normal bowel sounds, soft, nontender, no hepatosplenomegaly Musculoskeletal no cyanosis or clubbing, extremities motor strength 5/5 Skin no rashes, warm and dry Neurologic patellar DTR's 2+ bilat, sensation intact Results & Data Vital Signs (Past 12 Hours) Vital Signs Temp Pulse Pulse Resp BP BP Pulse Ox 11/06/22 07:00 36.4 C L 62 18 174/108 H 99 11/05/22 21:45 161/91 H 11/05/22 23:10 18 11/05/22 20:00 36.4 C L 79 18 166/93 H 11/06/22 06:22 67 157/80 H 11/06/22 06:06 70 170/87 H 11/06/22 06:04 73 172/97 H 11/06/22 05:01 70 158/78 H 11/06/22 04:01 68 149/82 H 11/06/22 03:03 67 149/87 H 11/06/22 03:01 73 144/83 H 11/06/22 02:59 63 157/91 H 11/06/22 02:57 65 147/85 H 11/06/22 02:55 66 145/85 H 11/06/22 02:53 75 155/84 H 11/06/22 02:51 68 160/93 H 11/06/22 02:49 66 170/91 H 11/06/22 01:45 72 168/78 H 11/06/22 01:15 76 128/64 11/06/22 00:45 80 122/63 11/06/22 00:15 68 140/69 11/05/22 23:44 69 145/81 H 11/05/22 23:39 78 145/90 H 11/05/22 23:34 71 145/81 H 11/05/22 23:29 68 156/88 H 11/05/22 23:24 66 146/83 H 11/05/22 23:19 70 150/82 H 11/05/22 23:14 75 162/87 H 11/05/22 23:01 81 193/102 H O2 Del Method 11/06/22 07:00 Room Air 11/05/22 21:45 11/05/22 23:10 11/05/22 20:00 11/06/22 06:22 11/06/22 06:06 11/06/22 06:04 11/06/22 05:01 11/06/22 04:01 11/06/22 03:03 11/06/22 03:01 11/06/22 02:59 11/06/22 02:57 11/06/22 02:55 11/06/22 02:53 11/06/22 02:51 11/06/22 02:49 11/06/22 01:45 11/06/22 01:15 11/06/22 00:45 11/06/22 00:15 11/05/22 23:44 11/05/22 23:39 11/05/22 23:34 11/05/22 23:29 11/05/22 23:24 11/05/22 23:19 11/05/22 23:14 11/05/22 23:01
[2022-11-06 07:56] LABS: Albumin Level 3.6 gm/dl (3.4-5.0); BUN Creatinine Ratio 20.6 (10-20); Bilirubin,Total 0.2 mg/dl (0.2-1.0); Creatinine Clr Calc Pharmacy 104.7 ml/min; Est GFR (African American) 129.1 ml/min; Est GFR (Non-African American) 111.4 ml/min; Globulin 3.5 gm/dl (2.5-4.0); Potassium 4.6 mmol/L (3.5-5.1); Total Protein 7.1 gm/dl (6.0-8.3)
[2022-11-06] MEDS: FERROUS SULFATE 325 MG TAB PO SCH ×2 (08:29→09:48)
[2022-11-06] MEDS: DOCUSATE SODIUM 100 MG CAP PO SCH ×2 (08:29→09:47)
[2022-11-06] MEDS: SIMETHICONE 80 MG CHEW PO SCH ×3 (08:29→18:57)
[2022-11-06] MEDS: PRENATAL VITAMIN 1 TAB PO SCH ×2 (08:29→09:48)
[2022-11-06] MEDS ORDERED: LABETALOL HCL IV 5 MG/ML 20ML IV STA (08:35)
[2022-11-06] MEDS: LACTATED RINGER'S 1,000 ML IV SCH ×2 (08:43→21:50)
[2022-11-06] MEDS: MAGNESIUM SULFATE / WTR 40 GM/1,000 ML BAG IV SCH ×2 (08:44)
[2022-11-06] MEDS: NIFEdipine EXTENDED REL 30 MG TABCR PO SCH (08:46)
[2022-11-06] MEDS ORDERED: Nursing to Pharmacy Communication SCH (09:15)
[2022-11-06] MEDS ORDERED: LABETALOL HCL IV 5 MG/ML 20ML IV PRN (09:55)
[2022-11-06] MEDS: IBUPROFEN 600 MG TAB PO PRN ×2 (15:21→22:37)
[2022-11-07] MEDS: DOCUSATE SODIUM 100 MG CAP PO SCH ×2 (01:11→07:41)
[2022-11-07] MEDS: SIMETHICONE 80 MG CHEW PO SCH ×3 (01:12→13:24)
[2022-11-07] MEDS: MAGNESIUM SULFATE / WTR 40 GM/1,000 ML BAG IV SCH (03:30)
[2022-11-07 06:35] LABS: Hematocrit (blood only) 40.2 % (37.0-47.0); Hemoglobin 13.6 g/dl (12.0-16.0); Mean Corpuscular Hemoglobin 29.2 pg (25.0-34.0); Mean Corpuscular Hgb Conc 33.8 g/dL (32.0-36.0); Mean Corpuscular Volume 86.3 fL (80.0-100.0); Platelet Count 278 K/uL (130-400); RDW Coefficient of Variation 12.9 % (11.5-14.5); Red Blood Count 4.66 M/uL (4.20-5.40); White Blood Count 13.11 K/ul (4.8-10.8)
[2022-11-07 06:51] LABS: Albumin Level 3.3 gm/dl (3.4-5.0); BUN Creatinine Ratio 23.3 (10-20); Bilirubin,Total 0.2 mg/dl (0.2-1.0); Calcium 6.8 mg/dl (8.6-10.3); Creatinine Clr Calc Pharmacy 109.9 ml/min; Est GFR (African American) 131.2 ml/min; Est GFR (Non-African American) 113.2 ml/min; Globulin 3.3 gm/dl (2.5-4.0); Potassium 4.4 mmol/L (3.5-5.1); Total Protein 6.6 gm/dl (6.0-8.3)
[2022-11-07] MEDS: PRENATAL VITAMIN 1 TAB PO SCH (07:41)
[2022-11-07] MEDS: FERROUS SULFATE 325 MG TAB PO SCH (07:41)
[2022-11-07] MEDS ORDERED: Nursing to Pharmacy Communication SCH (08:30)
[2022-11-07] MEDS: NIFEdipine EXTENDED REL 30 MG TABCR PO SCH (09:19)
[2022-11-07] MEDS ORDERED: DIPHTHERIA/TETANUS/PERTUSSIS 0.5mL SYR/VIAL (Age 7+yrs) IM ONE (10:19)
[2022-11-07] MEDS ORDERED: bisacodyL 10 MG SUPP PR PRN (10:19)
--- NOTE | 2022-11-07 10:21 | Obstetrical Progress Note ---
Date of Service November 07, 2022 Subjective Ambulation: ambulating normally Voiding: no voiding problems Passing Gas:: Yes Diet Tolerance:: regular diet Lochia:: Small Feeding Type:: breast feeding Current Pain Level(1-10): 0 doing well, no headache or visual changes. Physical Exam Constitutional WD/WN, vitals as above Gastrointestinal (Abdomen) Inspection/Auscultation: abdomen normal to inspection and + abdominal surgical incision Musculoskeletal Extremities: extremities normal to inspection Skin no rashes, warm and dry Neurologic patellar DTR's 2+ bilat, sensation intact Psychiatric A+Ox3, euthymic affect Results & Data Vital Signs (Past 12 Hours) Vital Signs Temp Pulse Resp BP Pulse Ox 11/07/22 07:00 18 11/07/22 06:00 16 11/07/22 05:00 16 11/07/22 04:00 16 11/07/22 03:00 36.8 C 16 11/07/22 03:00 18 11/07/22 02:00 16 11/07/22 01:00 16 11/07/22 00:00 18 11/06/22 23:00 18 11/07/22 08:51 76 143/91 H 11/07/22 08:32 78 99 11/07/22 08:18 71 149/86 H 11/07/22 08:02 78 99 11/07/22 08:03 73 147/95 H 11/07/22 07:48 66 138/90 11/07/22 07:32 71 98 11/07/22 07:33 66 157/100 H 11/07/22 07:28 69 149/94 H 11/07/22 07:23 67 148/95 H 11/07/22 07:18 70 143/94 H 11/07/22 07:14 69 146/94 H 11/07/22 07:08 65 142/91 H 11/07/22 07:06 67 147/89 H 11/07/22 07:03 72 139/89 11/07/22 06:52 81 165/95 H 11/07/22 06:49 75 167/92 H 11/07/22 06:19 77 162/99 H 11/07/22 05:49 76 148/86 H 11/07/22 05:19 72 140/81 11/07/22 04:49 74 162/77 H 11/07/22 04:19 73 147/84 H 11/07/22 03:49 82 141/93 H 11/07/22 03:19 71 152/81 H 11/07/22 02:49 82 150/86 H 11/07/22 02:19 75 164/78 H 11/07/22 01:49 74 148/78 H 11/07/22 01:19 76 154/87 H 11/07/22 00:49 97 11/07/22 00:49 80 11/07/22 00:49 81 182/80 H 11/07/22 00:19 98 11/07/22 00:19 77 11/07/22 00:19 84 157/86 H 11/06/22 23:49 97 11/06/22 23:49 72 11/06/22 23:49 153/86 H 11/06/22 23:19 98 11/06/22 23:19 71 11/06/22 23:19 147/78 H 11/06/22 22:49 98 11/06/22 22:49 75 11/06/22 22:49 156/88 H Laboratory Results 11/03/22 11/03/22 11/03/22 14:14 14:14 14:14 WBC 11.11 H RBC 4.64 Hgb 13.7 Hct 39.7 MCV 85.6 MCH 29.5 MCHC 34.5 RDW Std Deviation 38.5 RDW Coeff of Cathy 12.5 Plt Count 230 MPV 10.6 Immature Gran % (Auto) 1.3 Neut % (Auto) 76.4 Lymph % (Auto) 15.4 [place] % (Auto) 5.6 Eos % (Auto) 0.9 Baso % (Auto) 0.4 Neut # (Auto) 8.50 H Lymph # (Auto) 1.71 [place] # (Auto) 0.62 H Eos # (Auto) 0.10 Baso # (Auto) 0.04 Immature Gran # (Auto) 0.14 PT 9.4 INR 0.9 APTT 27.1 PTT Ratio 1.0 Sodium 135 L Potassium 4.1 Chloride 106 Carbon Dioxide 21 Anion Gap 8 BUN 16 Creatinine 0.69 Est Cr Clr Drug Dosing 95.6 Est GFR ( Amer) 125.3 Est GFR (Non-Af Amer) 108.1 BUN/Creatinine Ratio 23.2 H Glucose 74 Uric Acid 4.9 Calcium 8.9 Magnesium Magnesium (Sulf Ther) Total Bilirubin 0.2 AST 19 ALT 14 Alkaline Phosphatase 100 Total Protein 6.5 Albumin 3.4 Globulin 3.1 Albumin/Globulin Ratio 1.1 Ur Random Creatinine U Random Total Protein Protein/Creatinin Ratio SARS-CoV-2, RNA, NAAT Blood Type Antibody Screen 11/03/22 11/03/22 11/03/22 14:20 Unknown Unknown WBC RBC Hgb Hct MCV MCH MCHC RDW Std Deviation RDW Coeff of Cathy Plt Count MPV Immature Gran % (Auto) Neut % (Auto) Lymph % (Auto) [place] % (Auto) Eos % (Auto) Baso % (Auto) Neut # (Auto) Lymph # (Auto) [place] # (Auto) Eos # (Auto) Baso # (Auto) Immature Gran # (Auto) PT INR APTT PTT Ratio Sodium Potassium Chloride Carbon Dioxide Anion Gap BUN Creatinine Est Cr Clr Drug Dosing Est GFR ( Amer) Est GFR (Non-Af Amer) BUN/Creatinine Ratio Glucose Uric Acid Calcium Magnesium Magnesium (Sulf Ther) Total Bilirubin AST ALT Alkaline Phosphatase Total Protein Albumin Globulin Albumin/Globulin Ratio Ur Random Creatinine 50.5 U Random Total Protein 114.2 H Protein/Creatinin Ratio 2.3 H SARS-CoV-2, RNA, NAAT NEGATIVE Blood Type AB Positive Antibody Screen NEGATIVE 11/04/22 11/04/22 11/04/22 05:43 10:04 10:04 WBC 12.82 H RBC 4.28 Hgb 12.5 Hct 36.4 L MCV 85.0 MCH 29.2 MCHC 34.3 RDW Std Deviation 37.8 RDW Coeff of Cathy 12.4 Plt Count 185 MPV 10.1 Immature Gran % (Auto) 1.6 Neut % (Auto) 81.5 Lymph % (Auto) 9.9 [place] % (Auto) 6.1 Eos % (Auto) 0.4 Baso % (Auto) 0.5 Neut # (Auto) 10.46 H Lymph # (Auto) 1.27 [place] # (Auto) 0.78 H Eos # (Auto) 0.05 Baso # (Auto) 0.06 Immature Gran # (Auto) 0.20 PT INR APTT PTT Ratio Sodium 132 L Potassium 3.8 Chloride 100 Carbon Dioxide 27 Anion Gap 5 BUN 12 Creatinine 0.76 Est Cr Clr Drug Dosing 86.8 Est GFR ( Amer) 112.9 Est GFR (Non-Af Amer) 97.4 BUN/Creatinine Ratio 15.8 Glucose 96 Uric Acid Calcium 6.5 L D Magnesium 6.3 H* Magnesium (Sulf Ther) Total Bilirubin 0.2 AST 31 ALT 14 Alkaline Phosphatase 88 Total Protein 5.6 L Albumin 2.9 L Globulin 2.7 Albumin/Globulin Ratio 1.1 Ur Random Creatinine U Random Total Protein Protein/Creatinin Ratio SARS-CoV-2, RNA, NAAT Blood Type Antibody Screen 11/04/22 11/04/22 11/04/22 16:39 20:32 20:32 WBC 12.60 H RBC 4.05 L Hgb 11.9 L Hct 34.1 L MCV 84.2 MCH 29.4 MCHC 34.9 RDW Std Deviation 38.0 RDW Coeff of Cathy 12.6 Plt Count 188 MPV 9.9 Immature Gran % (Auto) 1.0 Neut % (Auto) 80.6 Lymph % (Auto) 10.8 [place] % (Auto) 6.7 Eos % (Auto) 0.6 Baso % (Auto) 0.3 Neut # (Auto) 10.15 H Lymph # (Auto) 1.36 [place] # (Auto) 0.85 H Eos # (Auto) 0.07 Baso # (Auto) 0.04 Immature Gran # (Auto) 0.13 PT INR APTT PTT Ratio Sodium 137 Potassium 4.0 Chloride 108 H Carbon Dioxide 23 Anion Gap 6 BUN 13 Creatinine 0.83 Est Cr Clr Drug Dosing 79.5 Est GFR ( Amer) 101.5 Est GFR (Non-Af Amer) 87.6 BUN/Creatinine Ratio 15.7 Glucose 88 Uric Acid Calcium 6.8 L Magnesium Magnesium (Sulf Ther) 4.7 Total Bilirubin 0.2 AST 31 ALT 13 Alkaline Phosphatase 91 Total Protein 5.7 L Albumin 3.0 L Globulin 2.7 Albumin/Globulin Ratio 1.1 Ur Random Creatinine U Random Total Protein Protein/Creatinin Ratio SARS-CoV-2, RNA, NAAT Blood Type Antibody Screen 11/05/22 11/06/22 11/06/22 06:24 06:57 06:57 WBC 16.11 H RBC 4.61 Hgb 12.1 13.5 Hct 35.9 L 40.7 MCV 88.3 MCH 29.3 MCHC 33.2 RDW Std Deviation 41.8 RDW Coeff of Cathy 12.9 Plt Count 263 MPV 9.3 L Immature Gran % (Auto) Neut % (Auto) Lymph % (Auto) [place] % (Auto) Eos % (Auto) Baso % (Auto) Neut # (Auto) Lymph # (Auto) [place] # (Auto) Eos # (Auto) Baso # (Auto) Immature Gran # (Auto) PT INR APTT PTT Ratio Sodium 138 Potassium 4.6 Chloride 105 Carbon Dioxide 26 Anion Gap 7 BUN 13 Creatinine 0.63 Est Cr Clr Drug Dosing 104.7 Est GFR ( Amer) 129.1 Est GFR (Non-Af Amer) 111.4 BUN/Creatinine Ratio 20.6 H Glucose 74 Uric Acid Calcium 9.0 D Magnesium Magnesium (Sulf Ther) Total Bilirubin 0.2 AST 34 ALT 21 Alkaline Phosphatase 93 Total Protein 7.1 D Albumin 3.6 Globulin 3.5 Albumin/Globulin Ratio 1.0 Ur Random Creatinine U Random Total Protein Protein/Creatinin Ratio SARS-CoV-2, RNA, NAAT Blood Type Antibody Screen 11/07/22 11/07/22 06:07 06:07 WBC 13.11 H RBC 4.66 Hgb 13.6 Hct 40.2 MCV 86.3 MCH 29.2 MCHC 33.8 RDW Std Deviation 40.0 RDW Coeff of Cathy 12.9 Plt Count 278 MPV 9.0 L Immature Gran % (Auto) Neut % (Auto) Lymph % (Auto) [place] % (Auto) Eos % (Auto) Baso % (Auto) Neut # (Auto) Lymph # (Auto) [place] # (Auto) Eos # (Auto) Baso # (Auto) Immature Gran # (Auto) PT INR APTT PTT Ratio Sodium 136 Potassium 4.4 Chloride 103 Carbon Dioxide 26 Anion Gap 7 BUN 14 Creatinine 0.60 Est Cr Clr Drug Dosing 109.9 Est GFR ( Amer) 131.2 Est GFR (Non-Af Amer) 113.2 BUN/Creatinine Ratio 23.3 H Glucose 83 Uric Acid Calcium 6.8 L D Magnesium Magnesium (Sulf Ther) Total Bilirubin 0.2 AST 60 H ALT 57 H Alkaline Phosphatase 87 Total Protein 6.6 Albumin 3.3 L Globulin 3.3 Albumin/Globulin Ratio 1.0 Ur Random Creatinine U Random Total Protein Protein/Creatinin Ratio SARS-CoV-2, RNA, NAAT Blood Type Antibody Screen
[2022-11-07] MEDS ORDERED: LABETALOL HCL 100 MG TAB PO SCH (10:30)
[2022-11-07] MEDS: IBUPROFEN 600 MG TAB PO PRN (13:14)
[2022-11-07] MEDS: ACETAMINOPHEN 500 MG TAB PO PRN (13:14)
[2022-11-08] MEDS ORDERED: FERROUS SULFATE 325 MG TAB PO SCH (08:00)
--- NOTE | 2022-11-14 11:44 | Discharge Summary (DS) ---
DATE OF ADMISSION: 11/03/2022. DATE OF DISCHARGE: 11/07/2022. REASON FOR ADMISSION AND HOSPITAL COURSE: The patient is a 42-year-old female, para 2-0-1-2, at 36 w eeks and 2 days, admitted from the office with elevated blood pressure consistent with preeclampsia w ith severe features. Her urine protein creatinine ratio was elevated. She was set up for a repeat c esarean section and consented to a bilateral salpingectomy for permanent sterilization. Procedure was done under spinal anesthesia, delivering a live baby with Apgars of 8 and 9. sterling ght was 5 pounds 5 ounces, male. Hospital course was unremarkable. She was discharged home on 11/07/2022 in stable condition. Home going instructions were given. CONDITION ON DISCHARGE: Stable. Medications include Percocet for pain and Motrin for pain. Regular diet on discharge and follow up in 1 week for incision check. Job ID: [id number]
== END 2022-11-07 17:10 | disposition home or self-care (01) | DRG 785 ==
LOC: OPB 13:10 → 4S1 13:13 → 4E2 11-04 18:09 → 4S1 11-05 22:55 → 4E2 11-06 06:45 → 4S1 11-06 07:55 → 4E2 11-07 12:43